=== PATIENT | female | born 1985 | race Caucasian/White ===

== ENCOUNTER 2023-10-08 20:32 | Emergency (ER) | payer BC ==
[2023-10-08 21:01] VITALS: TEMP 98.1; O2SAT 99
--- NOTE | 2023-10-08 21:10 | ERPHSYRPT ---
- History of Present Illness Time Seen by Provider: 10/08/23 20:55 Source: patient Exam Limitations: no limitations Patient Subjective Stated Complaint: pt states while at work she began having dizziness and feeling like her heart was racing. Triage Nursing Assessment: pt alert and oriented, answers questions approp. pt ambulates into room with steady gait noted. respirations nonlabored with lungs cta. skin warm and dry. heart rate 88 on monitor, sinus rhythm. pupils equal and reactive. pt moves all extremities without diff. Physician History: 38-year-old female presents to our ED with complaints of generally feeling unwell. Sore throat. Patient states her bones and joints are aching. Patient was at work and had a bout of diaphoresis. She felt her heart flutter and became transiently dizzy. Symptoms have since resolved. 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 Patient just had got done eating. Patient denied any pain. No chest pain no shortness of breath. No nausea no vomiting. No diarrhea no rash. No obvious sick contacts. Patient has no significant past medical history. She voices no other complaints or concerns at this time. Portions of this note were created with voice recognition technology. There may be grammatical, spelling, punctuation or sound alike errors Timing/Duration: today Severity: moderate Modifying Factors: Improves With: nothing Associated Symptoms: denies symptoms Allergies/Adverse Reactions: Penicillins Allergy (Severe, Verified 10/08/23 21:01) Anaphylactic Reaction Home Medications: No Reportable Medications [No Reported Medications] 10/08/23 [History] Hx Tetanus, Diphtheria Vaccination/Date Given: Yes Hx Influenza Vaccination/Date Given: Yes Hx Pneumococcal Vaccination/Date Given: No Immunizations Up to Date: Yes Travel Risk - International Travel Have you traveled outside of the country in past 3 weeks: No - Emerging Infectious Disease Are you exhibiting symptoms associated with any current EIDs: Yes Symptoms: Other (Please Comment) Comment: sore throat, sinus congestion - Review of Systems Constitutional: No Symptoms Eyes: No Symptoms Ears, Nose, & Throat: No Symptoms Respiratory: No Symptoms Cardiac: No Symptoms Abdominal/Gastrointestinal: No Symptoms Genitourinary Symptoms: No Symptoms Musculoskeletal: No Symptoms Skin: No Symptoms Neurological: No Symptoms Psychological: No Symptoms Endocrine: No Symptoms Hematologic/Lymphatic: No Symptoms Immunological/Allergic: No Symptoms - Past Medical History Pertinent Past Medical History: Yes Cardiac History: Arrhythmia Other Medical History: 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 - Past Surgical History Past Surgical History: Yes Gastrointestinal: Appendectomy Other Surgical History: breast lift, augmentation - Female History Hx Last Menstrual Period: 2 weeks Hx Now: No - Social History Smoking Status: Former smoker Drug Use: none - Social Determinants of Health Will the patient participate in the screening: Declined to provide - Nursing Vital Signs Nursing Vital Signs: Initial Vital Signs Temperature 98.1 F 10/08/23 20:43 Pulse Rate 99 H 10/08/23 20:43 Respiratory Rate 16 10/08/23 20:43 O2 Sat by Pulse Oximetry 99 10/08/23 20:43 Pain Scale Pain Intensity 0 - Physical Exam General Appearance: no apparent distress, alert Eye Exam: PERRL/EOMI, eyes nml inspection Ears, Nose, Throat Exam: normal ENT inspection, TMs normal, pharynx normal, moist mucous membranes Neck Exam: normal inspection, non-tender, supple, full range of motion Respiratory Exam: normal breath sounds, lungs clear, airway intact, No respiratory distress Cardiovascular Exam: regular rate/rhythm, normal heart sounds, normal peripheral pulses Gastrointestinal/Abdomen Exam: soft, normal bowel sounds, No tenderness, No mass Back Exam: normal inspection, normal range of motion, No CVA tenderness, No vertebral tenderness Extremity Exam: normal inspection, normal range of motion, pelvis stable Neurologic Exam: alert, oriented x 3, cooperative, normal mood/affect, sensation nml, No motor deficits Skin Exam: normal color, warm, dry, No rash Lymphatic Exam: No adenopathy SpO2 Interpretation: normal SpO2: 99 O2 Delivery: Room Air - Course Nursing assessment & vital signs reviewed: Yes EKG Interpreted by Me: RATE (39), Sinus Rhythm, NORMAL AXIS, NORMAL INTERVALS, NORMAL QRS Ordered Tests: Active Orders 24 hr Category Date Time Status Disc Inspector STAT Care 10/08/23 21:09 Active EKG-ER Only STAT Care 10/08/23 21:09 Active IV Insertion STAT Care 10/08/23 21:09 Active Pulse Oximetry (ED) STAT Care 10/08/23 21:09 Active CBC W DIFF Stat Lab 10/08/23 21:00 Completed CMP Stat Lab 10/08/23 21:00 Completed TROPONIN Q4H Lab 10/08/23 21:00 Completed TROPONIN Q4H Lab 10/09/23 01:15 Ordered TROPONIN Q4H Lab 10/09/23 05:15 Ordered UA W/RFX UR CULTURE Stat Lab 10/08/23 21:00 Completed Medication Summary Discontinued Medications Generic Name Dose Route Start Last Admin Trade Name Tania PRN Reason Stop Dose Admin Sodium Chloride 1,000 mls @ 999 mls/hr 10/08/23 21:09 10/08/23 21:20 Sodium Chloride 0.9% 1000 Ml IV 10/08/23 22:09 999 mls/hr .Q1H1M STA Administration Sodium Chloride Confirm 10/08/23 21:19 Sodium Chloride 0.9% 1000 Ml Administered 10/08/23 21:20 Dose 1,000 mls @ ud .ROUTE .STK-MED ONE Lab/Rad Data: Laboratory Result Diagrams 10/08/23 21:00 10/08/23 21:00 Laboratory Results 10/08/23 10/08/23 10/08/23 Range/Units 21:00 21:00 21:00 WBC 7.9 (3.98-10.04) x10^3/uL RBC 4.28 (3.93-5.22) x10^6/uL Hgb 12.6 (11.2-15.7) g/dL Hct 37.5 (34.1-44.9) % MCV 87.6 (79.4-94.8) fL MCH 29.4 (25.6-32.2) pg MCHC 33.6 (32.2-35.5) g/dL RDW 13.8 (11.7-14.4) % Plt Count 218 (182-369) x10^3/uL MPV 10.7 (9.4-12.3) fL Gran % 66.7 (34.0-71.1) % Immature Gran % (Auto) 0.4 (0.001-0.429) % Nucleat RBC Rel Count 0.0 (0.00-0.2) % Eos # (Auto) 0.03 L (0.04-0.36) x10^3/uL Immature Gran # (Auto) 0.03 (0.001-0.031) x10^3u/L Absolute Lymphs (auto) 1.97 (1.18-3.74) x10^3/uL Absolute Monos (auto) 0.55 (0.24-0.86) x10^3/uL Absolute Nucleated RBC 0.00 (0.00-0.012) x10^3u/L Lymphocytes % 25.0 (19.3-51.7) % Monocytes % 7.0 (4.7-12.5) % Eosinophils % 0.4 L (0.7-5.8) % Basophils % 0.5 (0.1-1.2) % Absolute Granulocytes 5.26 (1.56-6.13) x10^3/uL Basophils # 0.04 (0.01-0.08) x10^3/uL Sodium 140 (135-145) mmol/L Potassium 4.0 (3.5-5.1) mmol/L Chloride 104 (98-107) mmol/L Carbon Dioxide 25 (22-30) mmol/L Anion Gap 14.7 (5-15) MEQ/L BUN 9 (7-17) mg/dL Creatinine 1.01 (0.52-1.04) mg/dL Estimated GFR 72.6 ML/MIN Glucose 90 (74-106) mg/dL Calcium 9.2 (8.4-10.2) mg/dL Total Bilirubin 0.30 (0.2-1.3) mg/dL AST 32 (14-36) U/L ALT 26 (0-35) U/L Alkaline Phosphatase 75 (38-126) U/L Troponin I < 0.012 (0.000-0.033) ng/mL Serum Total Protein 7.7 (6.3-8.2) g/dL Albumin 4.4 (3.5-5.0) g/dL Urine Color (Yellow) Urine Appearance (Clear) Urine pH (4.6-8.0) Ur Specific Rogers (1.005-1.030) Urine Protein (Negative) Urine Glucose (UA) (Negative) mg/dL Urine Ketones (Negative) Urine Blood (Negative) Urine Nitrite (Negative) Urine Bilirubin (Negative) Urine Urobilinogen (0.2) mg/dL Ur Leukocyte Esterase (Negative) U Hyaline Cast (Auto) (0-2) /LPF Urine Microscopic RBC (0-5) /HPF Urine Microscopic WBC (0-5) /HPF Ur Epithelial Cells (None Seen) /HPF Urine Bacteria (None Seen) /HPF Urine Culture Reflexed (NO) Influenza Type A Ag (NEGATIVE) Influenza Type B Ag (NEGATIVE) RSV (PCR) (NEGATIVE) SARS-CoV-2 (PCR) (NEGATIVE) Group A Strep Antibody (NEGATIVE) 10/08/23 10/08/23 10/08/23 Range/Units 21:00 21:00 21:00 WBC (3.98-10.04) x10^3/uL RBC (3.93-5.22) x10^6/uL Hgb (11.2-15.7) g/dL Hct (34.1-44.9) % MCV (79.4-94.8) fL MCH (25.6-32.2) pg MCHC (32.2-35.5) g/dL RDW (11.7-14.4) % Plt Count (182-369) x10^3/uL MPV (9.4-12.3) fL Gran % (34.0-71.1) % Immature Gran % (Auto) (0.001-0.429) % Nucleat RBC Rel Count (0.00-0.2) % Eos # (Auto) (0.04-0.36) x10^3/uL Immature Gran # (Auto) (0.001-0.031) x10^3u/L Absolute Lymphs (auto) (1.18-3.74) x10^3/uL Absolute Monos (auto) (0.24-0.86) x10^3/uL Absolute Nucleated RBC (0.00-0.012) x10^3u/L Lymphocytes % (19.3-51.7) % Monocytes % (4.7-12.5) % Eosinophils % (0.7-5.8) % Basophils % (0.1-1.2) % Absolute Granulocytes (1.56-6.13) x10^3/uL Basophils # (0.01-0.08) x10^3/uL Sodium (135-145) mmol/L Potassium (3.5-5.1) mmol/L Chloride (98-107) mmol/L Carbon Dioxide (22-30) mmol/L Anion Gap (5-15) MEQ/L BUN (7-17) mg/dL Creatinine (0.52-1.04) mg/dL Estimated GFR ML/MIN Glucose (74-106) mg/dL Calcium (8.4-10.2) mg/dL Total Bilirubin (0.2-1.3) mg/dL AST (14-36) U/L ALT (0-35) U/L Alkaline Phosphatase (38-126) U/L Troponin I (0.000-0.033) ng/mL Serum Total Protein (6.3-8.2) g/dL Albumin (3.5-5.0) g/dL Urine Color Yellow (Yellow) Urine Appearance Clear (Clear) Urine pH 6.0 (4.6-8.0) Ur Specific Rogers 1.015 (1.005-1.030) Urine Protein Negative (Negative) Urine Glucose (UA) Negative (Negative) mg/dL Urine Ketones Negative (Negative) Urine Blood Negative (Negative) Urine Nitrite Negative (Negative) Urine Bilirubin Negative (Negative) Urine Urobilinogen 1.0 A (0.2) mg/dL Ur Leukocyte Esterase Negative (Negative) U Hyaline Cast (Auto) NONE SEEN (0-2) /LPF Urine Microscopic RBC 0-2 (0-5) /HPF Urine Microscopic WBC 0-2 (0-5) /HPF Ur Epithelial Cells Rare (None Seen) /HPF Urine Bacteria None Seen (None Seen) /HPF Urine Culture Reflexed NO (NO) Influenza Type A Ag NEGATIVE (NEGATIVE) Influenza Type B Ag NEGATIVE (NEGATIVE) RSV (PCR) NEGATIVE (NEGATIVE) SARS-CoV-2 (PCR) NEGATIVE (NEGATIVE) Group A Strep Antibody NOT DETECTED (NEGATIVE) - Progress Progress: improved Progress Note: 38-year-old female presents to emergency department with nonspecific complaints. Physical exam nonremarkable. Laboratory workup negative. Patient complained of a sore throat. RSV COVID influenza negative. Rapid strep negative. Patient received a liter of IV fluids. Patient is currently asymptomatic. Vital stable. Patient states he is ready for discharge. No indication for further workup at this time. Patient agrees to follow-up with the primary care doctor within 48 hours for reevaluation. Portions of this note were created with voice recognition technology. There may be grammatical, spelling, punctuation or sound alike errors Complexity problem addressed is moderate acute complicated. No critical care time. Complex of data reviewed and analyzed is moderate. Test ordered test reviewed results analyzed and correlated clinically with history and physical ex am. Risk of complication and or risk of morbidity/mortality patient management is low. Vital stable. Time spent to discharge patient is approximately 10 minutes. Plan of care established for shared decision making. No social determinants of health present impede follow-up. Portions of this note were created with voice recognition technology. There may be grammatical, spelling, punctuation or sound alike errors 10/08/23 22:13 Counseled pt/family regarding: lab results, diagnosis, need for follow-up, rad results - Departure Departure Disposition: Home Clinical Impression: Diaphoresis Condition: Stable Critical Care Time: No Referrals: JANNIE CASTILLO MD [Primary Care Provider] - Follow up/PCP as directed Additional Instructions: Discharge/Care Plan DDAA TALBERT was seen on 10/08/23 in the Emergency Room. The patient was counseled regarding Diagnosis,Lab results, Imaging studies, need for follow up and when to return to the Emergency Room. Prescriptions given: Discharge Note I have spoken with the patient and/or caregivers. I have explained the patient's condition, diagnosis and treatment plan based on the information available to me at this time. I have answered the patient's and/or caregiver's questions and addressed any concerns. The patient and/or caregivers have as good understanding of the patient's diagnosis, condition and treatment plan as can be expected at this point. The vital signs have been stable. The patient's condition is stable and appropriate for discharge from the emergency department. The patient will pursue further outpatient evaluation with the primary care physician or other designated or consulting physician as outlined in the discharge instructions. The patient and/or caregivers are agreeable to this plan of care and follow-up instructions have been explained in detail. The patient and/or caregivers have received these instruction. The patient/and or caregivers are aware that any significant change in condition or worsening of symptoms should prompt an immediate return to this or the closest emergency department or call 911.
[2023-10-08 21:15] LABS: Absolute Neutrophil Ct (ANC) 5.26 x10^3/uL (1.56-6.13); BASOPHIL % 0.5 % (0.1-1.2); Basophil (Absolute #) 0.04 x10^3/uL (0.01-0.08); Eosinophil % 0.4 % (0.7-5.8); Eosinophil (Absolute #) 0.03 x10^3/uL (0.04-0.36); Hematocrit 37.5 % (34.1-44.9); Hemoglobin 12.6 g/dL (11.2-15.7); IMMATURE GRAN # 0.03 x10^3u/L (0.001-0.031); IMMATURE GRAN % 0.4 % (0.001-0.429); Lymphocyte (Absolute #) 1.97 x10^3/uL (1.18-3.74); Mean Cell Volume 87.6 fL (79.4-94.8); Mean Corpuscular Hemoglobin 29.4 pg (25.6-32.2); Mean Corpuscular Hgb Concent. 33.6 g/dL (32.2-35.5); Mean Platelet Volume 10.7 fL (9.4-12.3); Monocyte (Absolute #) 0.55 x10^3/uL (0.24-0.86); Neutrophil % 66.7 % (34.0-71.1); Platelet Count 218 x10^3/uL (182-369); Red Blood Count 4.28 x10^6/uL (3.93-5.22); Red Cell Distribution Width 13.8 % (11.7-14.4); White Blood Count 7.9 x10^3/uL (3.98-10.04)
[2023-10-08] MEDS ORDERED: Sodium Chloride 0.9% 1000 ML 1,000 ML ONE (21:19)
[2023-10-08 21:20] LABS: Appearance Clear (Clear); Bacteria None Seen /HPF (None Seen); Bilirubin Negative (Negative); Blood Negative (Negative); Epithelial Cells Rare /HPF (None Seen); Glucose, Urine Negative (Negative); Hyaline Casts NONE SEEN /LPF (0-2); Ketones Negative (Negative); Leukocyte Esterase Negative (Negative); Nitrite Negative (Negative); Protein,Urine Dip Negative (Negative); RBC 0-2 /HPF (0-5); Specific Gravity 1.015 (1.005-1.030); WBC 0-2 /HPF (0-5)
[2023-10-08] MEDS: Sodium Chloride 0.9% 1000 ML 1,000 ML IV STA (21:20)
[2023-10-08 21:21] LABS: ADD URINE CULTURE? NO (NO); ALBUMIN 4.4 g/dL (3.5-5.0); ANION GAP 14.7 MEQ/L (5-15); BILIRUBIN,TOTAL 0.3 mg/dL (0.2-1.3); Calcium 9.2 mg/dL (8.4-10.2); Creatinine 1 1.01 mg/dL (0.52-1.04); EST GLOMERULAR FILTRATION RATE 72.6 ML/MIN; Total Protein 7.7 g/dL (6.3-8.2)
[2023-10-08 21:54] LABS: INFLUENZA A NEGATIVE (NEGATIVE); INFLUENZA B NEGATIVE (NEGATIVE); RESPIRATORY SYNCTIAL VIRUS NEGATIVE (NEGATIVE); SARS-CoV-2 Xpert Express NEGATIVE (NEGATIVE)
[2023-10-08 22:17] VITALS: BP 150/100; PULSE 77; RESP 23
== END 2023-10-08 22:27 | disposition home or self-care (01) ==
LOC: ED 20:32
DX: R61 Generalized hyperhidrosis (principal); J02.9 Acute pharyngitis, unspecified; M79.10 Myalgia, unspecified site; M25.50 Pain in unspecified joint; R42 Dizziness and giddiness
CPT/HCPCS: 0241U; 36000; 36415; 80053; 81001; 84484; 85025; 87651; 93005; 93041; 94760; 96360; 99284